=== PATIENT | female | born 1960 | race Caucasian/White ===

== ENCOUNTER 2016-12-18 15:57 | Emergency (ER) | payer BC ==
[~2016-12-18] VITALS: Ht 167.6 cm; Wt 72.6 kg
[2016-12-18 15:57] VITALS: BP 172/112
[2016-12-18] MEDS ORDERED: SEROQUEL300 MG PO (16:44)
[2016-12-18] MEDS ORDERED: XANAX 0.25 MG0.25 MG PO (16:45)
[2016-12-18] MEDS ORDERED: NORCO 5-325 TA1 EACH PO (17:00)
== END 2016-12-18 17:05 | disposition home or self-care (01) ==
LOC: ER 15:57
DX: S42.022A Displaced fracture of shaft of left clavicle, initial encounter for closed fracture (principal); V80.919A Animal-rider injured in unspecified transport accident, initial encounter; Y93.89 Activity, other specified; Y92.89 Other specified places as the place of occurrence of the external cause; Y99.9 Unspecified external cause status